=== PATIENT | male | born 1985 | race Two or more races ===

== ENCOUNTER 2017-11-15 15:39 | Observation (INO) | payer OTHER ==
[2017-11-15] MEDS ORDERED: Famotidine IV* 10 MG/ML 2 ML (20 mg) ONE (15:42)
[2017-11-15] MEDS ORDERED: methylPREDNISolone 125 MG* 2 ML VIAL ONE (15:42)
[2017-11-15] MEDS ORDERED: diPHENhydraMINE IV* 50 MG/ML 1 ml VIAL (BENADRYL) ONE (15:42)
[2017-11-15] MEDS ORDERED: Aspirin 81 mg CHEW TAB* 81 MG TAB.CHEW PO ONE (16:16)
--- NOTE | 2017-11-15 16:40 | ED ---
Richard Saha SooYoung, scribed for Nereyda Beltrán MD on 11/15/17 at 1548 . Allergic Reaction/Systemic - HPI Summary HPI Summary: A 32 y/o M presents to ED by car with allergic reaction after being stung by multiple yellow jackets diffusely across his body occurred approximately 1520. C /C is mid-sternal CP described as tightness, and radiating up to his neck mildly. Rated as 4 out of 10. Associated sx: diffuse hives. Denies SOB. He states he was walking around the [place] when he got stung. Does not carry an Epi- pen. No cardiac PMHx. 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 NKDA. PCP is in [place]. Home Medications Medication Instructions Recorded Confirmed Type NK [No Home Medications Reported] 11/15/17 11/15/17 History - History of Current Complaint Chief Complaint: EDAllergicReaction Time Seen by Provider: 11/15/17 15:42 Hx Obtained From: Patient Onset/Duration: Sudden Onset, Started minutes ago, Still Present Timing: Constant Severity Initially: Moderate Severity Currently: Moderate Pain Intensity: 4 Pain Scale Used: 0-10 Numeric Location: Discrete @ - midsternal CP/tightness and radiating to neck Character: Hives Aggravating Factor(s): Nothing Alleviating Factor(s): Epinephrine - reduced pain to 2/10 at bedside Associated Signs And Symptoms: Positive: Chest Pain, Rash, Throat Tightening, Other: - diffuse hives. Negative: Cough Wheezing, Difficulty Breathing, Hoarseness - Related Hx Possible Reaction To: Insect - multiple yellow jacket stings - Allergies/Home Medications Allergies/Adverse Reactions: Allergies Allergy/AdvReac Type Severity Reaction Status Date / Time bee venom protein (honey bee) Allergy Hives/Diff. Verified 11/15/17 15:45 Breathing/I tching Home Medications: Home Medications NK [No Home Medications Reported] 11/15/17 [History Confirmed 11/15/17] PMH/Surg Hx/FS Hx/Imm Hx Previously Healthy: No - Bee allergy Cardiovascular History: Denies: Hx Aneurysm, Hx Angina, Hx Angioplasty, Hx Atrial Fibrillation, Hx Auto Implanted Cardiovert Defib, Hx Cardiac Arrest, Hx Cardiomegaly, Hx Congenital Heart Disease, Hx Congestive Heart Failure, Hx Coronary Artery Disease, Hx Deep Vein Thrombosis, Hx Embolism, Hx Hypercholesterolemia, Hx Hypotension, Hx Hypertension, Hx Myocardial Infarction, Hx Pacemaker/ICD, Hx Peripheral Vascular Disease, Hx Rheumatic Fever, Hx Syncope, Hx Valvular Heart Disease, Hx Supraventricular Ventricular Tachycardia, Other Cardiovascular Problems/Disorders Sensory History: Denies: Hx Legally Blind, Hx Deafness - Surgical History Surgery Procedure, Year, and Place: Finger Infectious Disease History: No - Family History Known Family History: Negative: Cardiac Disease Family History: Father is alive. - Social History Occupation: Employed Full-time Lives: With Family Alcohol Use: Occasionally Hx Substance Use: No Hx Tobacco Use: No Smoking Status (MU): Never Smoked Tobacco Review of Systems Negative: Fever Positive: Chest Pain - tightness and radiating to neck Negative: Shortness Of Breath Gastrointestinal: Negative Skin: Other - hives Positive: Rash, Other - multiple punctate beestrings on extremities, chest, neck Neurological: Negative Psychological: Normal All Other Systems Reviewed And Are Negative: Yes Physical Exam - Summary Physical Exam Summary: Appearance: Well-appearing, moderate pain distress, well-nourished Skin: Warm, color reflects adequate perfusion, dry, multiple beestings, and multiple hives Head: Normal Head/Face inspection, atraumatic Eyes: Conjunctiva clear ENT: Normal inspection, no pharyngeal swelling Neck: Supple, no nodes, no JVD Respiratory: Lungs clear, normal breath sounds, no respiratory distress, no wheezes Cardio: RRR, No murmur, pulses normal, brisk capillary refill Abdomen: Soft, nontender Bowel sounds: Present Musculoskeletal: Strength Intact/ROM intact, no calf tenderness, no edema. Psychological: Normal Neuro: Alert, muscle tone normal, no focal deficit Triage Information Reviewed: Yes Vital Signs On Initial Exam: Initial Vitals Temp Pulse Resp BP Pulse Ox 98.5 F 103 15 172/99 98 11/15/17 15:45 11/15/17 15:45 11/15/17 15:45 11/15/17 15:45 11/15/17 15:45 Vital Signs Reviewed: Yes Diagnostics - Vital Signs Vital Signs Temp Pulse Resp BP Pulse Ox 11/15/17 16:00 79 20 96 11/15/17 15:58 89 27 96 11/15/17 15:49 86 26 174/87 97 11/15/17 15:45 98.5 F 103 15 172/99 98 - Laboratory Result Diagrams: 11/15/17 16:15 11/15/17 16:15 Lab Statement: Any lab studies that have been ordered have been reviewed, and results considered in the medical decision making process. - Radiology CXR Xray Interpretation: No Acute Changes - IMPRESSION: No active cardiopulmonary dz is noted. ED physician has seen this report and agrees. Radiology Interpretation Completed By: Radiologist - EKG 1551 Cardiac Rate: NL EKG Rhythm: Sinus Rhythm - 84bpm EKG Interpretation: nml AVIVCT, prolonged QTc (540), ST depression leads V2-V6. EKG Comparison: Other - No prior to compare 1752 Cardiac Rate: NL EKG Rhythm: Sinus Rhythm - [address] Segment: Non-Specific Ectopy: None EKG Interpretation: nml AVIVCT, nml axis, nml QTc Re-Evaluation - Re-Evaluation 1 Re-Evaluation Time: 16:13 Change: Improved Comment: Discussing EKG with pt; discussing cardio consult and plans to admit. Pt voiced understanding. Family present. 2 Re-Evaluation Time: 16:49 Change: Unchanged Comment: Discussing plan to admit. Pt voiced understanding. Pt states he's having mild intermediate racing palpitations. Allergic Reaction Course/Dx - Course Course Of Treatment: 32 yo M otherwise healthy received multiple beestings to extremities and chest and developed chest pain and throat tightness. Pt treated with anaphylaxis kit upon arrival and received Epinephrine 1mg IM, SoluMedrol 125mg IV, Pepcid 40mg IV and Benadryl 50mg IV with improvement in chest pain and decreased urticaria. Chest pain preceded the epinephrine. EKG was done after the epinephrine and showed ST depressions V2-V6 and prolonged QTc. Consulted with Dr. Rainey, cardio, who recommends observation admission, and Dr. Reddy, hospitalist, who will admit pt. Aware of critical lactic (4.1) at 1647. Potassium is 2.7 and will begin replacement IV. Some of the hypokalemia may be intracellular displacement of K+. Allergies noted. High blood pressure noted. Pt medications reviewed this visit. - Diagnoses Differential Diagnosis/HQI/PQRI: Positive: Anaphylaxis Provider Diagnoses: Elevated blood pressure reading without diagnosis of hypertension, Abnormal EKG , Hypokalemia - Provider Notifications Discussed Care Of Patient With: Darryl Rainey - cardio Time Discussed With Above Provider: 16:10 Instructed by Provider To: Admit As Observation - Discussing EKG. Recommends admission and overnight observation. Discharge - Sign-Out/Discharge Documenting (check all that apply): Discharge/Admit/Transfer - Admit - Discharge Plan Condition: Stable Disposition: ADMITTED TO [facility] Referrals: Sharif Green MD [Primary Care Provider] - Consult Consult: 0767, Consult with Dr. Reddy, hospitalist Will admit pt. The documentation as recorded by the Richard roman SooYoung accurately reflects the service I personally performed and the decisions made by me, Nereyda Beltrán MD.
[2017-11-15 16:41] LABS: Hematocrit 42 % (42-52); Hemoglobin 13.9 g/dl (14.0-18.0); Mean Corpuscular HGB Conc 33 g/dl (31-36); Mean Corpuscular Hemoglobin 30 pg (27-31); Mean Corpuscular Volume 89 fL (80-94); Mean Platelet Volume 8.9 um3 (7.4-10.4); Platelet Count 316 10^3/ul (150-450); Red Blood Count 4.67 10^6/ul (4.00-5.40); Red Cell Distribution Width 14 % (10.5-15); White Blood Count 14.1 10^3/ul (3.5-10.8)
[2017-11-15 16:42] LABS: INR 0.94 (0.77-1.02)
[2017-11-15 16:47] LABS: EGFR Non-African American 87.1 (>60)
--- NOTE | 2017-11-15 17:03 | RAD ---
Indication: Chest pain. Single frontal view of the chest performed at 1645 hours was reviewed. No prior study is available for comparison. No mediastinal shift is noted. Heart is of normal size and configuration. Lung walker appear clear. IMPRESSION: NO ACTIVE CARDIOPULMONARY DISEASE IS NOTED.
[2017-11-15 17:16] LABS: ABS Basophils 0.1 10^3/ul (0-0.2); ABS Eosinophils 0.3 10^3/ul (0-0.6); ABS Lymphocytes 7.5 10^3/ul (1.0-4.8); ABS Monocytes 1.4 10^3/ul (0-0.8); ABS Neutrophils 4.9 10^3/ul (1.5-7.7); ABS Nucleated RBC 0 10^3/ul; Eosinophil % 1.9 % (0-6); Lymphocyte % 53.1 % (25-47); Nucleated Red Blood Cells % 0
[2017-11-15 17:17] LABS: Urine Appearance Clear; Urine Blood Negative (Negative); Urine Color Yellow; Urine Ketones Negative (Negative); Urine Protein Negative (Negative); Urine Urobilinogen Negative (Negative)
[2017-11-15] MEDS: KCL 10 MEQ/50 ML IVPREMIX* 10 MEQ/50 ML BAG IV SCH ×2 (17:58→18:38)
[2017-11-15] MEDS ORDERED: Acetaminophen TAB* 325 MG PO PRN (19:01)
[2017-11-15] MEDS ORDERED: diPHENhydraMINE PO* 25 MG PO PRN (19:06)
--- NOTE | 2017-11-15 22:25 | HP ---
Amended report to enter co-signing physician. CC: Dr. Sharif Green* HISTORY AND PHYSICAL: DATE OF ADMISSION: 11/15/17 PRIMARY CARE PROVIDER: Dr. Sharif Green. ATTENDING PHYSICIAN WHILE IN THE HOSPITAL: Miroslava Rosales MD* (dictated by Sasha Newberry NP). CHIEF COMPLAINT: 1. Anaphylactic reaction to bee sting. 2. Chest pain. HISTORY OF PRESENT ILLNESS: Mr. Katz is a 32-year-old male who has no significant past medical history other than sciatica who presented to the emergency room after he states he was stung by several yellow jackets today. He reports that he was walking on the trail and stepped on a beehive and was stung several times by yellow jackets on his ankles, legs and posterior knees. He does report a history of allergic reaction to bee stings. He arrived to the emergency room by a private vehicle. He does report that on the way to the hospital, he did develop chest pain that was left midsternal chest pain that radiated to his neck. He rates the pain as sharp. He also reports that it felt like his heart was pounding. He said that he was sweaty, but he contributed that to the heat. He denied any nausea or vomiting. Denied any shortness of breath. He denies any recent illnesses or sick contacts. Denies any nocturnal dyspnea or orthopnea. States he does not get chest pain with walking or carrying out daily activities. While in the emergency room, he had allergic reaction protocol. He was given Solu- Medrol 125 IV. He was given Pepcid IV. He was also given 2 L of normal saline. He was given epinephrine and Benadryl. His initial EKG showed ST changes. His initial troponin was negative. Given his anaphylactic reaction and chest pain, we were asked by the emergency room physicians to evaluate him for admission to the hospital. PAST MEDICAL HISTORY: History of sciatica. PAST SURGICAL HISTORY: None. HOME MEDICATIONS: No home medications. ALLERGIES: No known drug allergies. He is allergic to BEES. FAMILY HISTORY: Great grandfather had a history of CVA and SC in his 80's. No documented family history of diabetes, cancer. Grandfather with a history of pancreatic cancer. SOCIAL HISTORY: The patient denies any tobacco or illicit drug use. He does report occasional alcohol use. He is currently employed. He is . He lives with and children. His surrogate decision maker in the event he is unable to make his own decisions is Pam Katz, her phone number is [phone]. He is a full code. REVIEW OF SYSTEMS: There is no documented fever. There has been no significant weight change. There was no double vision. No ear drainage. No rhinorrhea. Denies any sore throat. He denies any chest pain at the time of evaluation. He does report that en route to the hospital he did have left- sided chest pain that radiated to his left neck. He states that subsided with treatment with epinephrine, Solu-Medrol, Benadryl and Pepcid. He currently is chest pain free. He denies any orthopnea or nocturnal dyspnea. There was no abdominal pain. No nausea or vomiting. No dysuria or urinary frequency. There were no seizures. No loss of consciousness. No pruritus. He does have multiple insect stings to bilateral lower extremities. A review of 14 systems was completed, all others are negative. PHYSICAL EXAMINATION GENERAL: At this time, Mr. Katz is a healthy young male, sitting on the stretcher in the emergency room. He does not appear to be in any acute distress. VITAL SIGNS: Temperature was 98.5, heart rate was 74, respirations 16, O2 saturation 96% on room air, blood pressure 128/76. HEENT: Head is atraumatic, normocephalic. Eyes: EOMs are intact. Sclerae anicteric, not pale. Oral mucosa appeared to be moist. NECK: Supple. LUNGS: Clear to auscultation bilaterally. There are no wheezes, rales or rhonchi. HEART: S1, S2. Regular rate and rhythm. No murmurs, rubs or gallops. He is in normal sinus rhythm on the monitor at a regular rate. ABDOMEN: Soft and nontender. Bowel sounds are present x4. EXTREMITIES: Pulses are +2 bilaterally. He is able to move all 4 extremities with 5/5 strength. NEUROLOGIC: He is alert and oriented x3. Tongue is midline. Speech is clear. There are no gross focal deficits. SKIN: He has multiple bee sting mathis to bilateral lower extremities with mild erythema. No hives or swelling is noted at the time of examination. DIAGNOSTIC STUDIES/LAB DATA: WBCs were 14.1, RBCs 4.67, hemoglobin was 13.9, hematocrit was 42, platelet count was 316,000, neutrophils were 34.8, lymphs were 53.1, mono was 9.7. INR was 0.94. Sodium 143, potassium 2.7, chloride 108 , carbon dioxide was 24, BUN was 11, creatinine 0.99, glucose was 166, lactic acid was 4.1, calcium was 8.7, magnesium 1.9, AST was 37, ALTs were 61. Troponin was 0.00, repeat troponin was 0.01. BNP was 12. Urine was negative for urine protein, ketones, blood, nitrites, bilirubin, urobilinogen, urine leukocyte esterase and urine glucose were all negative. Urine pH was 6.0. Urine specific gravity was 1.02. Urine tox screen was all negative. The patient had a chest x-ray. Radiologist's impression: No active cardiopulmonary disease is noted. ASSESSMENT AND PLAN: Mr. Katz is a 32-year-old male with no significant past medical history, who presented to the emergency room today after anaphylactic reaction to bee stings and developed chest pain. He will be admitted under observation for: 1. Anaphylactic reaction to bee stings. We will continue to monitor him on telemetry. I will continue Pepcid 20 mg p.o. daily. I will continue Benadryl 25 mg p.o. q.4 hours as needed for hives or itching. He did receive Solu- Medrol 125 mg in the emergency room. He also received Pepcid 20 mg IV and Benadryl. He was given 2 L of normal saline and epinephrine. The patient reports that all of his symptoms have resolved. He denies any itching, swelling or throat tightness, shortness of breath at this time. We will continue to monitor him overnight for any recurrent symptoms. His chest x-ray was clear. 2. Chest pain. The patient initially had EKG changes. His initial troponin was negative at 0.00. We will continue to trend his troponins. His second troponin was 0.01. We will be repeating an EKG in morning. EKG rhythm has returned to baseline. We will monitor him on telemetry throughout the night. He did receive aspirin 324 mg in the emergency room. I suspect that his chest pain is related to the anaphylactic reaction to bee stings that he was having and that his EKG changes may have been associated with his anaphylaxis and being given epinephrine. 3. Hypokalemia. He did receive 20 mEq of potassium in the emergency room. I will repeat a potassium level this evening and repeat potassium level in the morning. We will replace his potassium as necessary. 4. Lactic acidosis. His initial lactic acid was 4.1. His repeat lactic acid after hydration had improved to 2.3. We will repeat lactic acid level in the morning. I suspect this is also related to his anaphylactic reaction to bee stings. 5. FEN. He can have a regular diet. 6. DVT prophylaxis. I will encourage ambulation. 7. Code status. He is a full code. TIME SPENT: Time spent on this admission was approximately 50 minutes, greater than half of that time was spent [id number] with the patient obtaining my history and physical, the other half time was spent going over my plan of care with the patient and implementing my plan of care. I have discussed this with my attending, Dr. Miroslava Rosales, she is in agreement with my plan. SASHA NEWBERRY, MACHINE DEICER ELEMENT WINDER [id number]/[facility] #: [id number] MAREN
[2017-11-15] MEDS ORDERED: NS 0.9% 1000 ML* 1,000 ML IV SCH (23:30)
[2017-11-16 06:16] LABS: ABS Basophils 0.1 10^3/ul (0-0.2); ABS Eosinophils 0 10^3/ul (0-0.6); ABS Lymphocytes 0.7 10^3/ul (1.0-4.8); ABS Monocytes 0.6 10^3/ul (0-0.8); ABS Nucleated RBC 0 10^3/ul; Eosinophil % 0 % (0-6); Hematocrit 42 % (42-52); Hemoglobin 13.9 g/dl (14.0-18.0); Mean Corpuscular HGB Conc 33 g/dl (31-36); Mean Corpuscular Hemoglobin 30 pg (27-31); Mean Corpuscular Volume 90 fL (80-94); Mean Platelet Volume 8.5 um3 (7.4-10.4); Nucleated Red Blood Cells % 0; Platelet Count 244 10^3/ul (150-450); Red Blood Count 4.62 10^6/ul (4.00-5.40); Red Cell Distribution Width 14 % (10.5-15); White Blood Count 17.3 10^3/ul (3.5-10.8)
[2017-11-16 06:32] LABS: EGFR Non-African American 101.1 (>60)
[2017-11-16 08:09] VITALS: BP 125/70
[2017-11-16] MEDS ORDERED: Famotidine TAB* 20 MG PO SCH (09:00)
--- NOTE | 2017-11-16 22:17 | DS ---
CC: Dr. Sharif Green* DISCHARGE SUMMARY: DATE OF ADMISSION: 11/15/17. DATE OF DISCHARGE: 11/16/17. PROVIDER: Honey Keita NP. ATTENDING PHYSICIAN: Dr. Rosales* (report dictated by Honey Keita NP). PRIMARY CARE PROVIDER: Dr. Sharif Green. HOSPITAL STATUS: Observation. DISCHARGE DIAGNOSES: 1. Anaphylactic reaction to bee sting. 2. Chest pain. SECONDARY DIAGNOSIS: History of sciatica. DISCHARGE MEDICATIONS: EpiPen 2 packs, see instructions. HISTORY OF PRESENT ILLNESS AND HOSPITAL COURSE: Please see history and physical by Sasha Newberry NP, for full admission details. In summary, this is a 32-year- old male, with no significant past medical history, who presented to the emergency department on 11/15/17 after he was stung several times by yellow jackets while he was walking on the trail and stepped on a beehive, and was stung on his ankles, legs and posterior knee. He arrived to the emergency department by private vehicle, and on the way to the hospital, he did develop chest pain with left midsternal pain radiating into his neck. He felt that his heart rate was pounding. He reported diaphoresis, but denied nausea, vomiting or shortness of breath, and did not have any lip, mouth or throat swelling. In the emergency department, he underwent the allergic reaction protocol and was given Solu-Medrol 125 mg IV, Pepcid IV, 2 L of normal saline, as well as epinephrine and Benadryl. He reports a history of allergic reaction to BEE STINGS; however, the last time he was stung was approximately 20 years ago in which he had a mild reaction. In the emergency department, his initial EKG showed ST changes. Due to this, he was admitted to the hospitalist service for evaluation. The patient was admitted to telemetry. His troponins were trended, which were all negative at 0.00, 0.01, and 0.01. His EKG was repeated 2 hours later showing improvement as well as he had an EKG this morning, which was showing a normal sinus rhythm. I suspected that this is secondary to the allergic anaphylactic reaction and the epinephrine. The patient is recommended to get an outpatient stress test, which has been ordered for him. The patient has done well overnight. He reports that he is at baseline and even reports that couple hours after this reaction, he felt back to his baseline. He has been ambulating around the unit. He has had no chest pain or shortness of breath. He was noted to be hypokalemic in the emergency department and did receive 20 mEq of potassium. As well, his initial lactic acidosis was 4.1 and this has normalized after IV fluids. Today, he does have a noted leukocytosis of 17, however, secondary to the stress response, epinephrine and Solu-Medrol that were given, I am not surprised the patient has a leukocytosis. I did recommend to the patient to have followup labs the next week. The patient has remained hemodynamically stable throughout hospitalization. No noted fevers. No signs of infection. The patient underwent a chest x-ray, which showed no acute cardiopulmonary disease. Urinalysis was negative. His tox screen was negative and other labs were unremarkable. He is noted to have a fasting blood glucose of 153 and guessing this is secondary to the steroids. The high dose steroids he was given in the emergency department may want to perform a fasting glucose as an outpatient. He also did have a fasting lipid profile this morning with triglycerides of 59, cholesterol 172, LDL of 125, and HDL of 35. The patient is stable for discharge home and follow up with his primary care provider. REVIEW OF SYSTEMS: A 14-point review of systems was performed. All the pertinent positives and negatives are mentioned in the history of present illness. Otherwise negative. PHYSICAL EXAMINATION: Vital Signs: Temperature 97.9, heart rate 56, respirations 17, O2 sat 99% on room air, blood pressure of 125/70. General Appearance: Well- developed, 32-year-old male, sitting up in bed, in no acute distress, alert and oriented x3. HEENT: Head is normocephalic, atraumatic. Pupils are equal and reactive to light. Oropharynx is clear. Moist mucous membranes. Good dentition. Cardiac: S1, S2. Regular rate and rhythm. No murmur, rub or gallop appreciated. Lungs: Clear to auscultation bilaterally. Good aeration throughout. Abdomen: Soft, nontender, nondistended. Normal bowel sounds throughout. Extremities: No clubbing, cyanosis or edema. Neuro: Alert and oriented x3. Cranial nerves II through XII are grossly intact. Psych: Appropriate. DISCHARGE PLAN: 1. Discharge to home. Follow up PCP within 5 to 7 days. 2. The patient was instructed to always carry the EpiPen. He has been prescribed 2. Anaphylaxis education was performed with the patient. 3. Plan for followup outpatient cardiac exercise stress test due to that he had EKG changes under stress. The patient is low risk for cardiac events as he has no prior history and no family history, does not have a history of tobacco abuse. However, I do think he should undergo an exercise stress test due to the changes noted on his EKG. 4. The patient has been instructed to follow up with [facility] or another refining equipment operator of his choosing. 5. Stable for discharge to home. TIME SPENT: Approximately 60 minutes were spent on this discharge. HONEY KEITA, JANICE [id number]/[facility] #: [id number] MAREN
== END 2017-11-16 11:15 | disposition home or self-care (01) ==
LOC: ED 15:39 → MEDTELE 19:01
PROVIDERS: ADMIT Internal Medicine; ATTEND Internal Medicine
DX: T63.441A Toxic effect of venom of bees, accidental (unintentional), initial encounter (principal); X58.XXXA Exposure to other specified factors, initial encounter; R07.9 Chest pain, unspecified; E87.6 Hypokalemia; E87.2 Acidosis; R94.31 Abnormal electrocardiogram [ECG] [EKG]
CPT/HCPCS: 36415; 71045; 80048; 80053; 80061; 80307; 81003; 82550; 82553; 83605; 83735; 83880; 84132; 84484; 85025; 85060; 85610; 85730; 93005; 96361; 96365; 99284; A9270-GY; G0378; J1200; J2930; J3480